=== PATIENT | female | born 1940 | race Hispanic/Latino ===

== ENCOUNTER 2016-11-26 10:21 | Outpatient (CLI) | payer MEDICARE, BC ==
[2016-11-26 10:49] LABS: #Basophils 0.1 thou/uL (0.0-0.2); #Eosinphils 0.3 thou/uL (0.0-0.7); #Lymphocytes 1.4 thou/uL (1.20-3.40); #Monocytes 0.4 thou/uL (0.11-0.59); #Neutrophils 5.1 thou/uL (1.40-6.50); %Basophils 1.2 % (0.0-1.0); %Eosinophils 3.6 % (0.0-10.0); %Lymphocytes 19.5 % (21.0-51.0); %Neutrophils 69.8 % (42.0-75.0); Hemoglobin 14.2 g/dL (12.0-16.0); Mean Corpuscular Hemoglobin 33.3 pg (27.0-31.0); Mean Corpuscular Volume 104.1 fl (81.0-99.0); Mean Platelet Volume 7.6 fL (7.4-10.4); Platelet Count 233 thou/uL (130-400); RBC Distribution Width 12.1 % (11.5-14.5); Red Blood Cell (RBC) Count 4.27 mill/uL (4.20-5.40); White Blood Cell (WBC) Count 7.3 thou/uL (4.8-10.8)
[2016-11-26 11:33] LABS: ALT (SGPT) 17 U/L (0-55); AST (SGOT) 15 U/L (5-34); Albumin 3.9 g/dL (3.4-4.8); Alkaline Phosphatase 75 U/L (40-150); Anion Gap 17 mmol/L (10-20); BUN (Urea Nitrogen) 9 mg/dL (9.8-20.1); Bilirubin, Direct 0.3 mg/dL (0.1-0.3); Bilirubin, Total 0.7 mg/dL (0.2-1.2); Calc. Creatinine Clearance 0 mL/min (70-130); Carbon Dioxide 28 mmol/L (23-31); Cardiac Risk 3.2 (Less than 4.5); Chloride 103 mmol/L (98-107); Cholesterol 136 mg/dL (< 200 Desired); Estimated GFR-MDRD 68; Glucose 100 mg/dL (83-110); HDL Cholesterol 42 mg/dL (>60 Neg Risk); LDL Cholesterol, Calculated 65 mg/dL; Potassium 3.5 mmol/L (3.5-5.1); Protein, Total 6.2 g/dL (5.8-8.1); Sodium 144 mmol/L (136-145); Triglycerides 147 mg/dL (Less than 150)
== END 2016-11-26 10:22 | disposition home or self-care (01) ==
LOC: MADLABBHPM 10:21
PROVIDERS: ATTEND Internal Medicine Cardiovascular Disease
DX: E78.5 Hyperlipidemia, unspecified (principal); I25.10 Atherosclerotic heart disease of native coronary artery without angina pectoris
CPT/HCPCS: 36415; 80048; 80061; 80076; 85025

== ENCOUNTER 2016-12-24 10:03 | Outpatient (CLI) | payer MEDICARE, BC ==
--- NOTE | 2016-12-24 10:47 | RAD ---
LEFT KNEE FOUR VIEWS: History: 76-year-old female with left knee pain following a fall on Wednesday. FINDINGS: Osteoarthrosis and degenerative changes of the left knee joint. Small amount of increased density i n the suprapatellar recess, possibly a small amount of joint fluid. No evidence for acute fracture or dislocation. IMPRESSION: Mild degenerative changes. No fracture or dislocation. POS: [facility]
== END 2016-12-24 10:04 | disposition home or self-care (01) ==
LOC: MADRAD 10:03
PROVIDERS: ATTEND Family Medicine
DX: M25.562 Pain in left knee (principal); M17.12 Unilateral primary osteoarthritis, left knee

== ENCOUNTER 2017-01-28 09:07 | Emergency (ER) | payer MEDICARE, BC ==
[2017-01-28 09:52] LABS: INR-International Normal Ratio 1.2; PTT 23.8 SEC (22.9-36.1)
[2017-01-28 10:03] LABS: ALT (SGPT) 24 U/L (0-55); AST (SGOT) 20 U/L (5-34); Alkaline Phosphatase 93 U/L (40-150); Amylase 40 U/L (20-160); Anion Gap 18 mmol/L (10-20); BUN (Urea Nitrogen) 16 mg/dL (9.8-20.1); Bilirubin, Total 0.6 mg/dL (0.2-1.2); CK (CPK) 82 U/L (29-168); CKMB 1.6 ng/mL (0-6.6); Calc. Creatinine Clearance 0 mL/min (70-130); Calcium 9.2 mg/dL (7.8-10.44); Carbon Dioxide 19 mmol/L (23-31); Chloride 106 mmol/L (98-107); Estimated GFR-MDRD 72; Globulin 2.7 g/dL (2.4-3.5); Glucose 131 mg/dL (83-110); Lipase 36 U/L (8-78); Magnesium 2.3 mg/dL (1.6-2.6); Potassium 3.8 mmol/L (3.5-5.1); Protein, Total 6.7 g/dL (5.8-8.1); Sodium 139 mmol/L (136-145); Troponin I Less than 0.010 ng/mL (< 0.028)
--- NOTE | 2017-01-28 10:11 | RAD ---
PA AND LATERAL VIEWS OF CHEST: Date: 01/28/17 HISTORY: Dyspnea. FINDINGS: Comparison made with exam of 06/15/14. The heart size is normal. The aorta is tortuous. The lungs are well expanded with stable mild chroni c changes. No confluent areas of consolidation, pneumothorax, or pleural effusions are seen. There a re degenerative changes in the spine. There are postop changes of metallic hardware in the cervical spine. IMPRESSION: No radiographic evidence of acute cardiopulmonary process. POS: [facility]
[2017-01-28 10:13] LABS: #Basophils 0.1 thou/uL (0.0-0.2); #Lymphocytes 1.3 thou/uL (1.20-3.40); #Monocytes 0.7 thou/uL (0.11-0.59); #Neutrophils 11.9 thou/uL (1.40-6.50); %Basophils 0.4 % (0.0-1.0); %Eosinophils 0.1 % (0.0-10.0); %Lymphocytes 9.1 % (21.0-51.0); %Monocytes 4.9 % (0.0-10.0); %Neutrophils 85.4 % (42.0-75.0); Hemoglobin 17.8 g/dL (12.0-16.0); Mean Corpuscular HGB CONC 32.8 g/dL (32.0-36.0); Mean Corpuscular Hemoglobin 33.6 pg (27.0-31.0); Mean Corpuscular Volume 102.6 fl (81.0-99.0); Mean Platelet Volume 7.7 fL (7.4-10.4); Platelet Count 248 thou/uL (130-400); RBC Distribution Width 11.3 % (11.5-14.5); Red Blood Cell (RBC) Count 5.28 mill/uL (4.20-5.40); White Blood Cell (WBC) Count 13.9 thou/uL (4.8-10.8)
[2017-01-28] MEDS ORDERED: Ketorolac Tromethamine 30 MG/ML VIAL ONE (10:26)
[2017-01-28] MEDS ORDERED: Ondansetron HCl/PF 4 MG/2 ML Vial ONE (10:26)
[2017-01-28 11:08] LABS: Bacteria/HPF 1+ HPF (None Seen); Bilirubin Negative (Negative); Blood, Urine Negative (Negative); Clarity Hazy (Clear); Glucose, Urine (Dipstick) Negative (Negative); Icto Negative (Negative); Leukocyte Negative (Negative); Nitrite Negative (Negative); Protein, Urine (Dipstick) 30 mg/dL (Neg-Trace); RBC/HPF 0-3 HPF (0-3); Specific Gravity, Urine 1.025 (1.005-1.030); WBC/HPF 0-3 HPF (0-3)
[2017-01-28] MEDS ORDERED: Ciprofloxacin 500 MG TAB ONE (12:28)
[2017-01-28] MEDS ORDERED: Sodium Chloride 0.9% 1,000 ML BAG ONE (13:37)
== END 2017-01-28 12:40 | disposition home or self-care (01) ==
LOC: MADERS 09:07
DX: R82.71 Bacteriuria (principal); E78.5 Hyperlipidemia, unspecified; K21.9 Gastro-esophageal reflux disease without esophagitis; I10 Essential (primary) hypertension; J45.909 Unspecified asthma, uncomplicated; F41.9 Anxiety disorder, unspecified; F32.9 Major depressive disorder, single episode, unspecified; Z79.82 Long term (current) use of aspirin; Z79.891 Long term (current) use of opiate analgesic; Z79.899 Other long term (current) drug therapy
CPT/HCPCS: 36415; 51701; 71020; 80053; 81001; 82150; 82550; 82553; 83605; 83690; 83735; 83880; 84443; 84484; 85025; 85610; 85730; 87040; 87086; 93005; 94760; 96361; 96374; 96375; A4353; J1885; J2270; J2405; J7050

== ENCOUNTER 2017-02-25 08:05 | Outpatient (CLI) | payer MEDICARE, BC ==
[2017-02-25 08:42] LABS: %Monocytes 7.3 % (0.0-10.0); %Neutrophils 69.3 % (42.0-75.0); Hemoglobin 14.2 g/dL (12.0-16.0); Mean Corpuscular HGB CONC 33.9 g/dL (32.0-36.0); Mean Corpuscular Hemoglobin 34.9 pg (27.0-31.0); Mean Platelet Volume 6.8 fL (7.4-10.4); Platelet Count 256 thou/uL (130-400); RBC Distribution Width 11.7 % (11.5-14.5); Red Blood Cell (RBC) Count 4.06 mill/uL (4.20-5.40); White Blood Cell (WBC) Count 8.1 thou/uL (4.8-10.8)
[2017-02-25 08:43] LABS: #Basophils 0.1 thou/uL (0.0-0.2); #Eosinphils 0.1 thou/uL (0.0-0.7); #Lymphocytes 1.7 thou/uL (1.20-3.40); #Monocytes 0.6 thou/uL (0.11-0.59); #Neutrophils 5.6 thou/uL (1.40-6.50); %Basophils 0.8 % (0.0-1.0); %Eosinophils 1.6 % (0.0-10.0)
[2017-02-25 09:04] LABS: Anisocytosis SLIGHT = 6-15 cells (100X) (0-5/hpf); PLT Morphology Comment Appears Adequate
[2017-02-25 10:18] LABS: MDiff Complete? YES; Mean Corpuscular Volume 102.3 fl (81.0-99.0)
[2017-02-25 18:03] LABS: ALT (SGPT) 15 U/L (8-55); AST (SGOT) 14 U/L (5-34); Albumin 3.7 g/dL (3.4-4.8); Alkaline Phosphatase 86 U/L (40-150); Anion Gap 18 mmol/L (10-20); BUN (Urea Nitrogen) 9 mg/dL (9.8-20.1); Bilirubin, Direct 0.2 mg/dL (0.1-0.3); Bilirubin, Total 0.5 mg/dL (0.2-1.2); Calc. Creatinine Clearance 0 mL/min (70-130); Calcium 8.8 mg/dL (7.8-10.44); Carbon Dioxide 24 mmol/L (23-31); Cardiac Risk 3.3 (Less than 4.5); Chloride 103 mmol/L (98-107); Cholesterol 137 mg/dl (< 200 Desired); Estimated GFR-MDRD 65; Glucose 104 mg/dL (83-110); HDL Cholesterol 41 mg/dL (>60 Neg Risk); LDL Cholesterol, Calculated 68 mg/dL; Potassium 3.9 mmol/L (3.5-5.1); Protein, Total 6.3 g/dL (6.0-8.3); Sodium 141 mmol/L (136-145); Triglycerides 140 mg/dL (Less than 150)
== END 2017-02-25 08:06 ==
LOC: MADLABBHPM 08:05
PROVIDERS: ATTEND Family Medicine
DX: E78.5 Hyperlipidemia, unspecified (principal); I10 Essential (primary) hypertension; I25.10 Atherosclerotic heart disease of native coronary artery without angina pectoris
CPT/HCPCS: 36415; 80048; 80061; 80076; 85025

== ENCOUNTER 2017-03-05 10:55 | Outpatient (CLI) | payer MEDICARE, BC ==
[2017-03-05 11:28] LABS: CRP (Inflammatory) 10.62 mg/dL (= or < 0.5); Uric Acid 6.5 mg/dL (2.6-6.0)
== END 2017-03-05 10:56 | disposition home or self-care (01) ==
LOC: MADLABBHPM 10:55
PROVIDERS: ATTEND Family Medicine
DX: M65.9 Synovitis and tenosynovitis, unspecified (principal)
CPT/HCPCS: 36415; 84550; 85652; 86140; 86430

== ENCOUNTER 2017-03-16 14:16 | Outpatient (CLI) | payer MEDICARE, BC ==
--- NOTE | 2017-03-16 16:43 | RAD ---
RIGHT HAND THREE VIEWS: History: Synovitis. Pain for three weeks. Comparison: None. FINDINGS: No acute fracture or malalignment. There is moderate degenerative disease of the thumb carpal metaca rpal joint. There is also interphalangeal joint space narrowing throughout the interphalangeal joint s. There is minimal narrowing of the metacarpal phalangeal joints. Radiocarpal joint demonstrates mi ld narrowing. IMPRESSION: 1. Scattered osteoarthritic disease. No acute fracture or malalignment. This is worse in the thumb c arpalmetacarpal joint. 2. Chondrocalcinosis of the triangular fiber cartilage. 3. Mild degenerative disease of the distal radial ulnar joint. POS: [facility]
== END 2017-03-16 14:17 | disposition home or self-care (01) ==
LOC: MADRAD 14:16
PROVIDERS: ATTEND Family Medicine
DX: M65.9 Synovitis and tenosynovitis, unspecified (principal); M19.041 Primary osteoarthritis, right hand; M11.241 Other chondrocalcinosis, right hand

== ENCOUNTER 2017-03-31 09:47 | Outpatient (CLI) | payer MEDICARE, BC ==
[2017-03-31 10:23] LABS: CRP (Inflammatory) 1.61 mg/dL (= or < 0.5); Uric Acid 6.9 mg/dL (2.6-6.0)
== END 2017-03-31 09:48 | disposition home or self-care (01) ==
LOC: MADLABBHPM 09:47
PROVIDERS: ATTEND Family Medicine
DX: M65.9 Synovitis and tenosynovitis, unspecified (principal)
CPT/HCPCS: 36415; 84550; 85652; 86140

== ENCOUNTER 2017-06-24 13:14 | Outpatient (CLI) | payer MEDICARE, BC ==
[2017-06-24 13:53] LABS: ALT (SGPT) 20 U/L (8-55); AST (SGOT) 17 U/L (5-34); Albumin 3.8 g/dL (3.4-4.8); Alkaline Phosphatase 61 U/L (40-150); Anion Gap 12 mmol/L (10-20); BUN (Urea Nitrogen) 22 mg/dL (9.8-20.1); Bilirubin, Direct 0.3 mg/dL (0.1-0.3); Bilirubin, Total 0.7 mg/dL (0.2-1.2); Calc. Creatinine Clearance 0 mL/min (70-130); Carbon Dioxide 29 mmol/L (23-31); Cardiac Risk 3.3 (Less than 4.5); Chloride 105 mmol/L (98-107); Cholesterol 154 mg/dl (< 200 Desired); Estimated GFR-MDRD 65; Glucose 94 mg/dL (83-110); HDL Cholesterol 46 mg/dL (>60 Neg Risk); LDL Cholesterol, Calculated 88 mg/dL; Potassium 4.6 mmol/L (3.5-5.1); Protein, Total 6.2 g/dL (6.0-8.3); Sodium 141 mmol/L (136-145); Triglycerides 102 mg/dL (Less than 150)
[2017-06-24 14:11] LABS: #Basophils 0.1 thou/uL (0.0-0.2); #Lymphocytes 1.4 thou/uL (1.20-3.40); #Monocytes 0.6 thou/uL (0.11-0.59); #Neutrophils 8.3 thou/uL (1.40-6.50); %Basophils 0.6 % (0.0-1.0); %Eosinophils 0.4 % (0.0-10.0); %Lymphocytes 13.5 % (21.0-51.0); %Monocytes 5.9 % (0.0-10.0); %Neutrophils 79.5 % (42.0-75.0); Anisocytosis SLIGHT = 6-15 cells (100X) (0-5/hpf); Hemoglobin 14.9 g/dL (12.0-16.0); MDiff Complete? YES; Macrocytosis SLIGHT = 6-15 cells (100X) (0-5/hpf); Mean Corpuscular HGB CONC 32.5 g/dL (32.0-36.0); Mean Corpuscular Volume 104.6 fl (81.0-99.0); Mean Platelet Volume 6.7 fL (7.4-10.4); PLT Morphology Comment Appears Adequate; Platelet Count 238 thou/uL (130-400); Red Blood Cell (RBC) Count 4.38 mill/uL (4.20-5.40); White Blood Cell (WBC) Count 10.4 thou/uL (4.8-10.8)
== END 2017-06-24 13:15 | disposition home or self-care (01) ==
LOC: MADLABBHPM 13:14
PROVIDERS: ATTEND Family Medicine
DX: E87.6 Hypokalemia (principal); E78.5 Hyperlipidemia, unspecified
CPT/HCPCS: 36415; 80048; 80061; 80076; 85025

== ENCOUNTER 2017-06-28 11:49 | Outpatient (CLI) | payer MEDICARE, BC ==
--- NOTE | 2017-06-28 15:23 | CT ---
BRAIN CT WITHOUT IV CONTRAST: History: 77-year-old female with right arm weakness for less than 24 hours. FINDINGS: Scattered atrophy and chronic white matter ischemic changes and old punctate right basal ganglia lac unar infarct. No mass or midline shift. No acute hemorrhage. Sinuses and mastoids are clear of acute process. IMPRESSION: Minimal atrophy and chronic white matter ischemic changes with a small punctate right basal ganglia lacunar infarct. No mass or bleed or other acute process. POS: [facility]
== END 2017-06-28 11:50 | disposition home or self-care (01) ==
LOC: MADCT 11:49
PROVIDERS: ATTEND Family Medicine
DX: G45.9 Transient cerebral ischemic attack, unspecified (principal)
CPT/HCPCS: 70450

== ENCOUNTER 2017-12-12 11:22 | Emergency (ER) | payer MEDICARE, BC ==
[2017-12-12] MEDS ORDERED: Benzonatate 100 MG CAP ONE (11:47)
[2017-12-12] MEDS ORDERED: Naproxen 500 MG TAB ONE (11:47)
[2017-12-12] MEDS ORDERED: HYDROcodone/Acetaminophen 10/325 mg Tablet ONE (11:47)
[2017-12-12 12:22] LABS: #Basophils 0.1 thou/uL (0.0-0.2); #Lymphocytes 0.7 thou/uL (1.20-3.40); #Monocytes 0.6 thou/uL (0.11-0.59); #Neutrophils 6.5 thou/uL (1.40-6.50); %Basophils 1.2 % (0.0-1.0); %Eosinophils 0.5 % (0.0-10.0); %Lymphocytes 8.5 % (21.0-51.0); %Monocytes 7.1 % (0.0-10.0); %Neutrophils 82.7 % (42.0-75.0); Anisocytosis SLIGHT = 6-15 cells (100X) (0-5/hpf); Hemoglobin 13.7 g/dL (12.0-16.0); MDiff Complete? YES; Mean Corpuscular HGB CONC 32.6 g/dL (32.0-36.0); Mean Corpuscular Hemoglobin 34.4 pg (27.0-31.0); Mean Corpuscular Volume 105.5 fl (81.0-99.0); Mean Platelet Volume 6.1 fL (7.4-10.4); PLT Morphology Comment Appears Adequate; Platelet Count 264 thou/uL (130-400); RBC Distribution Width 12.2 % (11.5-14.5); Red Blood Cell (RBC) Count 3.97 mill/uL (4.20-5.40); White Blood Cell (WBC) Count 7.9 thou/uL (4.8-10.8)
--- NOTE | 2017-12-12 12:26 | RAD ---
PORTABLE CHEST 1 VIEW: Date: 12/12/17 Time: 1138 hours HISTORY: Dyspnea. FINDINGS/IMPRESSION: Comparison made with exam of 01/28/17. The heart size is prominent. The aorta is tortuous. The lungs are well expanded with mild prominence in the pulmonary vascularity. No lobar consolidation, pneumothoraces, or large effusions are seen. Th ere are postop changes with metallic hardware in the cervical spine. POS: [facility]
[2017-12-12] MEDS ORDERED: AMOXicillin 250 MG CAP ONE (12:51)
== END 2017-12-12 12:46 | disposition home or self-care (01) ==
LOC: MADERS 11:22
DX: J20.9 Acute bronchitis, unspecified (principal); K21.9 Gastro-esophageal reflux disease without esophagitis; E78.5 Hyperlipidemia, unspecified; E66.9 Obesity, unspecified; J45.909 Unspecified asthma, uncomplicated; I10 Essential (primary) hypertension; F41.9 Anxiety disorder, unspecified; F32.9 Major depressive disorder, single episode, unspecified; Z79.899 Other long term (current) drug therapy
CPT/HCPCS: 36415; 71045; 85025; 87081; 87430

== ENCOUNTER 2017-12-24 12:53 | Emergency (ER) | payer MEDICARE, BC ==
[~2017-12-24 12:53] MED LIST: Iopamidol 370 76% 125 ML VIAL FS ONE; Sodium Chloride 0.9% 1,000 ML BAG ONE; Sodium Chloride 0.9% 100 ML BAG ONE
[2017-12-24] MEDS ORDERED: Ondansetron ODT 4 MG TAB ONE (13:38)
[2017-12-24 13:58] LABS: #Basophils 0.1 thou/uL (0.0-0.2); #Lymphocytes 1.2 thou/uL (1.20-3.40); #Neutrophils 8.4 thou/uL (1.40-6.50); %Basophils 0.8 % (0.0-1.0); %Eosinophils 0.4 % (0.0-10.0); %Lymphocytes 11.2 % (21.0-51.0); %Monocytes 9.2 % (0.0-10.0); %Neutrophils 78.4 % (42.0-75.0); Anisocytosis SLIGHT = 6-15 cells (100X) (0-5/hpf); MDiff Complete? YES; Mean Corpuscular HGB CONC 31.7 g/dL (32.0-36.0); Mean Corpuscular Hemoglobin 33.3 pg (27.0-31.0); Mean Platelet Volume 6.4 fL (7.4-10.4); Platelet Count 375 thou/uL (130-400); RBC Distribution Width 12.6 % (11.5-14.5); White Blood Cell (WBC) Count 10.7 thou/uL (4.8-10.8)
[2017-12-24 13:59] LABS: ALT (SGPT) 21 U/L (8-55); AST (SGOT) 24 U/L (5-34); Albumin 4.1 g/dL (3.4-4.8); Alkaline Phosphatase 80 U/L (40-150); Anion Gap 21 mmol/L (10-20); BUN (Urea Nitrogen) 10 mg/dL (9.8-20.1); Bilirubin, Total 0.8 mg/dL (0.2-1.2); Calc. Creatinine Clearance 0 mL/min (70-130); Calcium 9.5 mg/dL (7.8-10.44); Carbon Dioxide 21 mmol/L (23-31); Chloride 105 mmol/L (98-107); Estimated GFR-MDRD 65; Globulin 2.9 g/dL (2.4-3.5); Glucose 109 mg/dL (83-110); Potassium 3.8 mmol/L (3.5-5.1); Sodium 143 mmol/L (136-145)
[2017-12-24 14:01] LABS: CKMB 1.2 ng/mL (0-6.6); Troponin I Less than 0.010 ng/mL (< 0.028)
--- NOTE | 2017-12-24 14:15 | RAD ---
PORTABLE AP CHEST X-RAY: 12/24/2017 HISTORY: Cough. COMPARISON: 12/12/2017 FINDINGS: Post surgical changes of the lower cervical spine are again seen. The cardiac silhouette and pulmona ry vasculature are within normal limits for the portable technique of the study. There is minimal li near scarring versus atelectasis in the right mid lung zone. The lungs are otherwise clear. No othe r interval change. IMPRESSION: No acute cardiopulmonary process. POS: [facility]
[2017-12-24 15:02] LABS: Bilirubin Negative (Negative); Blood, Urine Trace (Negative); Glucose, Urine (Dipstick) Negative (Negative); Leukocyte Negative (Negative); Nitrite Negative (Negative); Protein, Urine (Dipstick) Negative (Neg-Trace); Urobilinogen 0.2 mg/dL (0.2-1.0)
--- NOTE | 2017-12-24 15:10 | CT ---
CT ANGIOGRAM OF THE CHEST: Date: 12/24/17 COMPARISON: 10/07/14. TECHNIQUE: CT angiogram of the chest performed in the axial plane. Bilateral oblique and coronal three-dimension al reformatted images are submitted for interpretation. FINDINGS: No mediastinal mass, lymphadenopathy, or hematoma. Heart is mildly enlarged. No significant pericardi al fluid. The thoracic aorta and upper abdominal aorta have a normal caliber. No periaortic fat stran ding. Visualized upper solid organs are unremarkable. Trachea and central bronchi are patent. Minimal dependent atelectatic changes. No consolidation or ma ss. No pleural effusion. No pneumothorax. There is prominence of the central pulmonary vasculature, worrisome for pulmonary artery hypertension . No filling defect to suggest thromboembolism to the level of the segmental arteries. Evaluation is slightly limited by motion degradation. There are no lytic or blastic lesions in the osseous structures. IMPRESSION: 1. Prominence of pulmonary vasculature. Correlate for pulmonary arterial hypertension. 2. No evidence of pulmonary artery embolism to the level of the segmental arteries. POS: [facility]
[2017-12-24 15:20] LABS: Clarity Hazy (Clear)
[2017-12-24 15:22] LABS: Bacteria/HPF Rare-Few HPF (None Seen); RBC/HPF 0-3 HPF (0-3); Squamous Epithelial 0-3 HPF (0-3); WBC/HPF 0-3 HPF (0-3)
== END 2017-12-24 15:32 | disposition home or self-care (01) ==
LOC: MADERS 12:53
DX: J20.9 Acute bronchitis, unspecified (principal); F41.9 Anxiety disorder, unspecified; E78.5 Hyperlipidemia, unspecified; I10 Essential (primary) hypertension; E66.9 Obesity, unspecified; J45.909 Unspecified asthma, uncomplicated; F32.9 Major depressive disorder, single episode, unspecified
CPT/HCPCS: 71045; 71275; 80053; 81003; 81015; 82553; 83880; 84484; 85025; 85379; 93005; 96360; J7050; Q0162

== ENCOUNTER 2018-01-13 19:19 | Emergency (ER) | payer MEDICARE, BC ==
[2018-01-13 20:14] LABS: #Basophils 0.1 thou/uL (0.0-0.2); #Eosinphils 0.1 thou/uL (0.0-0.7); #Lymphocytes 2.1 thou/uL (1.20-3.40); #Monocytes 0.7 thou/uL (0.11-0.59); #Neutrophils 8.5 thou/uL (1.40-6.50); %Basophils 1.2 % (0.0-1.0); %Eosinophils 0.5 % (0.0-10.0); %Lymphocytes 18.2 % (21.0-51.0); %Monocytes 6.4 % (0.0-10.0); %Neutrophils 73.8 % (42.0-75.0); Hemoglobin 15.6 g/dL (12.0-16.0); Mean Corpuscular HGB CONC 33.8 g/dL (32.0-36.0); Mean Corpuscular Volume 103.7 fl (81.0-99.0); Mean Platelet Volume 6.8 fL (7.4-10.4); Platelet Count 325 thou/uL (130-400); RBC Distribution Width 12.6 % (11.5-14.5); Red Blood Cell (RBC) Count 4.46 mill/uL (4.20-5.40); White Blood Cell (WBC) Count 11.5 thou/uL (4.8-10.8)
[2018-01-13] MEDS ORDERED: Ondansetron HCl/PF 4 MG/2 ML Vial ONE ×2 (20:16→21:30)
[2018-01-13] MEDS ORDERED: Morphine 10 MG/ML VIAL ONE (20:16)
--- NOTE | 2018-01-13 20:25 | RAD ---
SINGLE VIEW OF THE CHEST: 01/13/18 COMPARISON: 12/24/17 HISTORY: Fall with pain all over. FINDINGS: Single view of the chest shows a normal sized cardiomediastinal silhouette. There is no evidence of c onsolidation, mass, or pleural effusion. Hardware is seen in the cervical spine. IMPRESSION: No evidence of acute cardiopulmonary disease. POS: [facility]
--- NOTE | 2018-01-13 20:26 | RAD ---
TWO VIEWS OF THE RIGHT FOREARM: 01/13/18 COMPARISON: None. HISTORY: Fall with right forearm pain and pain all over. FINDINGS: Two views of the right forearm shows no evidence of acute fracture or dislocation. Mild soft tissue s welling is seen. No degenerative changes are seen. IMPRESSION: No evidence of acute osseous abnormality. POS: [facility]
[2018-01-13 20:32] LABS: ALT (SGPT) 26 U/L (8-55); AST (SGOT) 27 U/L (5-34); Alkaline Phosphatase 83 U/L (40-150); Anion Gap 23 mmol/L (10-20); BUN (Urea Nitrogen) 14 mg/dL (9.8-20.1); Bilirubin, Total 0.8 mg/dL (0.2-1.2); Calc. Creatinine Clearance 0 mL/min (70-130); Calcium 9.3 mg/dL (7.8-10.44); Carbon Dioxide 17 mmol/L (23-31); Chloride 103 mmol/L (98-107); Estimated GFR-MDRD 66; Globulin 2.4 g/dL (2.4-3.5); Glucose 137 mg/dL (83-110); Magnesium 1.8 mg/dL (1.6-2.6); Potassium 3.1 mmol/L (3.5-5.1); Protein, Total 6.4 g/dL (6.0-8.3); Sodium 140 mmol/L (136-145)
[2018-01-13 20:52] LABS: CKMB 1.5 ng/mL (0-6.6); Troponin I 0.037 ng/mL (< 0.028)
[2018-01-13] MEDS ORDERED: Aspirin 325 MG TAB ONE (21:06)
--- NOTE | 2018-01-13 21:39 | RAD ---
TWO VIEWS OF THE RIGHT HIP 01/13/18 COMPARISON: None. HISTORY: Right hip pain after fall one day ago. FINDINGS: Two views of the right hip shows no evidence of acute fracture or dislocation. No soft tissue swellin g is seen. No degenerative change is seen in the right hip. IMPRESSION: No evidence of acute osseous abnormality. POS: [facility]
--- NOTE | 2018-01-13 22:05 | RAD ---
FOUR VIEWS OF THE RIGHT KNEE 01/13/18 COMPARISON: None. HISTORY: Fall one day ago with right knee pain. FINDINGS: Four views of the right knee shows no evidence of acute fracture or dislocation. There is moderate os teophyte formation of the medial femoral tibial compartment consistent with osteoarthritis. No knee e ffusion is seen. IMPRESSION: Moderate right knee osteoarthritis without acute osseous abnormality. POS: [facility]
--- NOTE | 2018-01-13 22:52 | CT ---
CT OF THE BRAIN WITHOUT CONTRAST 01/13/18 COMPARISON: 06/28/17 HISTORY: Fall with head injury and pain all over. Possible loss of consciousness. TECHNIQUE: Multiple contiguous axial images were obtained in a CT of the brain without contrast. FINDINGS: There are stable hypodensities in the subcortical and periventricular white matter, likely secondary to small vessel ischemic disease. No large confluent infarction is seen. There is no evidence of hydr ocephalus, intracranial hemorrhage or extra-axial fluid collection. The calvarium and overlying soft tissues are unremarkable. The visualized paranasal sinuses and masto id air cells are well aerated. IMPRESSION: No evidence of acute intracranial abnormality. POS: [facility]
== END 2018-01-14 00:05 | disposition short-term general hospital (02) ==
LOC: MADERS 19:19
DX: I21.4 Non-ST elevation (NSTEMI) myocardial infarction (principal); E11.9 Type 2 diabetes mellitus without complications; E78.5 Hyperlipidemia, unspecified; E66.9 Obesity, unspecified; F32.9 Major depressive disorder, single episode, unspecified; F41.9 Anxiety disorder, unspecified; K21.9 Gastro-esophageal reflux disease without esophagitis; I10 Essential (primary) hypertension; J45.909 Unspecified asthma, uncomplicated; M19.90 Unspecified osteoarthritis, unspecified site
CPT/HCPCS: 70450; 71045; 80053; 82553; 83735; 83880; 84484; 85025; 93005; 96374; 96375; 96376; J2270; J2405